=== PATIENT | male | born 1985 | race Two or more races ===

== ENCOUNTER 2024-11-11 14:29 | Inpatient (IN) | payer MEDICAID, OTHER ==
[~2024-11-11] VITALS: Ht 195.6 cm; Wt 81.5 kg
[2024-11-11 14:43] VITALS: PULSE 72; RESP 16; O2SAT 99
[2024-11-11] MEDS: fentaNYL CITRATE 100 MCG/2 ML VL IV ONE (15:24)
--- NOTE | 2024-11-11 15:40 | DVH ---
CLINICAL INDICATION: FALL TECHNIQUE: 3 radiographic views of the right forearm were obtained. Comparison: None FINDINGS/IMPRESSION: There is acute fracture of the distal radius diaphysis with ventral displacement of the distal fragme nt and about 11 mm bony overlap. There is also acute comminuted fracture of the distal ulna diaphysis with foreshortening and about 2. 1 cm bony overlap. Questionable fracture of the base of the 2nd metacarpal. There is associated soft tissue edema.
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
[2024-11-11 16:24] LABS: Hematocrit 42.2 % (41.0-53.0); Hemoglobin 14.6 g/dL (13.5-17.5); Mean Corpuscular Hemoglobin 30.7 pg (28.0-32.0); Mean Corpuscular Volume 88.7 fL (80.0-100.0); Nucleated Red Blood Cells % 0.1 %
[2024-11-11 16:37] LABS: Alanine Aminotransferase 17 U/L (7-40); Albumin 4.7 g/dL (3.2-4.8); Alkaline Phosphatase 66 U/L (46-116); Anion Gap 13 (5-15); BUN/Creatinine Ratio 15.4 (10.0-20.0); Bilirubin, Total 0.6 mg/dL (0.2-1.0); Blood Urea Nitrogen 16 mg/dL (9-23); Calcium 9.6 mg/dL (8.7-10.4); Carbon Dioxide 24 mmol/L (20-31); Chloride 104 mmol/L (98-107); Potassium 4.5 mmol/L (3.5-5.1); Sodium 141 mmol/L (136-145); Total Protein 7.2 g/dL (5.7-8.2)
[2024-11-11 16:38] LABS: Glucose 128 mg/dL (74-106)
[2024-11-11] MEDS: IOHEXOL 300 MG/ML 100ML BOTTLE IJ ONE (17:33)
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
[2024-11-11] MEDS ORDERED: MORPHINE SULFATE INJ 2 MG/ml SYRG IV PRN ×2 (18:00)
[2024-11-11] MEDS: ENOXAPARIN SOD 40 MG/0.4 ML SYRINGE SC ONE (18:00)
[2024-11-11] MEDS: SOD CHL 0.45% 1,000 ML IV SCH (18:00)
[2024-11-11] MEDS ORDERED: NITROGLYCERIN 0.4 MG SL TAB SL PRN (18:00)
[2024-11-11] MEDS ORDERED: ACETAMINOPHEN 325 MG TAB PO PRN (18:00)
[2024-11-11] MEDS ORDERED: DOCUSATE SOD 100 MG CAP PO PRN (18:00)
--- NOTE | 2024-11-11 18:47 | DVH ---
EXAM: CT RT UPPER EXTREMITY WITH CONT INDICATION: FALL INJURY,FRACTURE EXAM DATE: 11/11/2024 05:34 PM COMPARISON: XY R FOREARM XRAY on DOS: 11/11/24 TECHNIQUE: Multiple axial CT images of the right upper extremity were obtained using bone algorithm. Axial and coronal reformatting was done. Bone and soft tissue windows were reviewed. Radiation Dose Information: CT Dose: CTDI volume is 24.08 mGy. Dose-length product is 2.13 mGy*cm Findings/Impression: Displaced acute traumatic fracture of the distal radial shaft. Displaced acute traumatic fracture of the distal ulnar shaft. Displaced acute traumatic fracture of the 1st metacarpal base. Questionable nondisplaced fracture deformity of the triquetrum Soft tissue swelling is seen throughout the forearm.
[2024-11-11 19:41] VITALS: PULSE 84; RESP 18; O2SAT 99
[2024-11-11] MEDS: HYDROcodone-ACET 5/325MG TAB PO PRN (20:13)
[2024-11-11 21:00] VITALS: BP_SYST 132; BP_SYST 136; BP_DIAS 87; BP_DIAS 98; PULSE 77; PULSE 82; PULSE 89; RESP 17; TEMP 98.2; TEMP 98.4; O2SAT 97; O2SAT 98
[2024-11-12] VITALS (9 sets, daily range): BP systolic 125–146; BP diastolic 83–96; PULSE 72–91; RESP 16–18; TEMP 98–98.4; O2SAT 95–98
[2024-11-12] MEDS: HYDROmorphone HCL 2 MG/ML VL/or syr IV PRN (01:32)
[2024-11-12 05:43] LABS: Hematocrit 43.3 % (41.0-53.0); Hemoglobin 15.2 g/dL (13.5-17.5); Mean Corpuscular Hemoglobin 31.3 pg (28.0-32.0); Mean Corpuscular Volume 89.3 fL (80.0-100.0); Nucleated Red Blood Cells % 0.1 %
[2024-11-12 06:07] LABS: Alanine Aminotransferase 15 U/L (7-40); Alkaline Phosphatase 67 U/L (46-116); Anion Gap 12 (5-15); BUN/Creatinine Ratio 9.6 (10.0-20.0); Blood Urea Nitrogen 10 mg/dL (9-23); Calcium 9.3 mg/dL (8.7-10.4); Carbon Dioxide 27 mmol/L (20-31); Chloride 101 mmol/L (98-107); Potassium 3.6 mmol/L (3.5-5.1); Sodium 140 mmol/L (136-145); Total Protein 7.8 g/dL (5.7-8.2)
[2024-11-12 06:09] LABS: Albumin 4.8 g/dL (3.2-4.8); Bilirubin, Total 1.2 mg/dL (0.2-1.0); Glucose 124 mg/dL (74-106)
[2024-11-12] MEDS: ENOXAPARIN SOD 40 MG/0.4 ML SYRINGE SC SCH (09:44)
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
[2024-11-12] MEDS: ONDANSETRON HCL 4 MG/2 ML VIAL IV PRN (23:23)
[2024-11-13] VITALS (9 sets, daily range): BP systolic 129–147; BP diastolic 74–89; PULSE 76–105; RESP 16–18; TEMP 97.6–98; O2SAT 94–98
[2024-11-13] MEDS: ACETAMINOPHEN IV 1000 MG/100ML (10MG/ML) IV ONE (10:39)
[2024-11-13] MEDS: GABAPENTIN 300 MG CAP PO ONE (10:39)
[2024-11-13] MEDS: CELECOXIB 100 MG CAP PO ONE (10:39)
[2024-11-13] MEDS ORDERED: CELECOXIB 100 MG CAP ONE (10:46)
[2024-11-13] MEDS ORDERED: GABAPENTIN 300 MG CAP ONE (10:46)
[2024-11-13] MEDS ORDERED: ACETAMINOPHEN IV 100 ML IV ONE (10:46)
[2024-11-13] MEDS: ceFAZolin 2 GM/D5W50ml 50 ML IV ONE (10:46)
[2024-11-13] MEDS ORDERED: ONDANSETRON HCL 4 MG/2 ML VIAL ONE (10:50)
[2024-11-13] MEDS ORDERED: LIDOCAINE 1% INJ PF 5ML AMP ONE (10:50)
[2024-11-13] MEDS ORDERED: KETOROLAC TROMETH 30 MG/ML 1ML VIAL ONE (10:50)
[2024-11-13] MEDS ORDERED: LIDOCAINE 2% (LOCAL ANESTH.) PF 5ml SDV ONE (10:50)
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
[2024-11-13 11:07] LABS: Hepatitis B Surface Antigen Negative (Negative)
[2024-11-13] MEDS ORDERED: fentaNYL CITRATE 100 MCG/2 ML VL ONE (11:16)
[2024-11-13] MEDS ORDERED: ESMOLOL HCL 10 ML IV ONE (11:22)
[2024-11-13 11:36] LABS: Hepatitis C Antibody Negative (Negative)
[2024-11-13] MEDS ORDERED: NALOXONE HCL 0.4 MG/ML VIAL IV PRN (12:45)
[2024-11-13] MEDS ORDERED: ONDANSETRON HCL 4 MG/2 ML VIAL IV PRN (12:45)
[2024-11-13] MEDS ORDERED: fentaNYL CITRATE 100 MCG/2 ML VL IV PRN (12:45)
[2024-11-13] MEDS ORDERED: FLUMAZENIL 0.1 MG/ML INJ 10ML MDV IV PRN (12:45)
[2024-11-13] MEDS ORDERED: hydrALAZINE HCL 20 MG/ML VL IV PRN (12:45)
[2024-11-13] MEDS: HYDROmorphone HCL 2 MG/ML VL/or syr IV PRN (13:15)
[2024-11-13 13:23] LABS: INR 1.03 (0.9-1.15); Partial Thromboplastin Time 28.8 SEC (24.5-34.5); Prothrombin Time 10.9 sec (9.3-11.8)
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
[2024-11-13] MEDS: ceFAZolin 1GM/50ML 50 ML IV SCH (17:37)
--- NOTE | 2024-11-13 18:43 | DVHOP2 ---
Operative Report - 2 Report Details Date: 11/13/24 Preop Diagnosis: Right both bone forearm fracture Postop Diagnosis: as above Surgeon: Greg Clifton MD Rubber Flap Tuber Machine Operator: Jose Luis ROGERS Anesthesiologist: Hudson MCKEON Anesthesia: General Implant: ITS both bone forearm plates Consent: The patient was informed of the risks and benefits of the procedure. These include but are not limited to complications of anesthesia, postoperative infection, incomplete relief of symptoms, recurrence of symptoms, damage to blood vessels, nerves and tendons, deep venous thrombosis, pulmonary embolism and possible need for repeat surgery in the future. Estimated Blood Loss: 20 cc Name of Procedure Performed 1. Open reduction internal fixation of right both bone forearm fracture; 2. Right forearm volar fasciotomy; 3. Intraoperative fluoroscopy Procedure Details Procedure Details: After informed consent was obtained, the patient was brought to the operating room, placed supine on the operating table. General anesthesia was induced, and a nonsterile tourniquet was placed high on the right arm but not inflated initially. The right upper extremity was prepped and draped in the usual sterile fashion. A direct subcutaneous approach was made along the subcutaneous border of the ulna. Dissection was carried down through subcutaneous tissues, taking care to protect surrounding structures. The ulna fracture was identified and visualized. Fracture ends were debrided of hematoma and interposed tissue. Reduction was achieved using reduction clamps and held provisionally with pointed reduction forceps. Internal fixation was performed using a 3.5 mm DCP spanning the fracture, with appropriate number of bicortical screws proximally and distally - 5 total. Fluoroscopy confirmed satisfactory alignment and hardware placement. A volar Brijesh approach was utilized. Patient muscle noted to have some increased swelling so I did proceed with a volar fasciotomy. A longitudinal incision approximately 1520 cm in length was made along the volar forearm, just ulnar to the flexor carpi radialis (FCR) tendon, extending from the antecubital fossa to proximal to the wrist crease. The skin and subcutaneous tissue were incised sharply, and hemostasis was maintained. Dissection was carried through the superficial fascia. The superficial volar compartment (flexor/pronator group) was identified and released by incising the overlying fascia in its entirety along the length of the incision. The deep volar compartment, including the flex or digitorum profundus and flexor pollicis longus muscles, was also decompressed by incising the deep investing fascia. The mobile wad compartment (brachioradialis, ECRL, ECRB) was palpated along the radial side of the wound and released via extension. I then proceeded with plate placement. Dissection proceeded through the interval between the brachioradialis and FCR. The radial artery was protected throughout the procedure. The pronator teres was elevated off the radius. The fracture site was identified and debrided. Reduction was performed and held with clamps. Internal fixation was achieved with a 3.5 mm lockign compression plate with appropriate screw fixation proximally and distally. Fluoroscopy confirmed excellent reduction and hardware placement. The wound was irrigated, hemostasis achieved, and layers were closed in the usual fashion- I did not close fascia. Patient wound were then sterilley dressed and placed into a resting splint. Patient wokened up from anesth having tolerated procedure well. Condition Good Disposition Still a Patient GREG CLIFTON MD Nov 13, 2024 18:42
[2024-11-14] VITALS (7 sets, daily range): BP systolic 129–166; BP diastolic 71–106; PULSE 74–86; RESP 18–20; TEMP 97.3–98.4; O2SAT 95–98
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
[2024-11-15 01:00] VITALS: BP 146/86; PULSE 82; RESP 18; TEMP 98; O2SAT 92
[2024-11-15 05:00] VITALS: BP 140/94; PULSE 90; RESP 18; TEMP 98; O2SAT 95
[2024-11-15 08:00] VITALS: PULSE 81
[2024-11-15 09:00] VITALS: BP 143/85; PULSE 104; RESP 19; TEMP 97.6; O2SAT 95
[2024-11-15] MEDS ORDERED: HYDR-4798 PO (11:23)
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
[2024-11-15 12:51] VITALS: BP 169/99; PULSE 95; RESP 20; TEMP 98.3; O2SAT 95
== END 2024-11-15 14:15 | disposition home or self-care (01) | DRG 315 ==
LOC: ER 14:31 → OVERFLOW 17:52 → TELE-WESTW 20:51
PROVIDERS: ADMIT Family Medicine; ATTEND Family Medicine
PROC: 0PSK04Z Reposition Right Ulna with Internal Fixation Device, Open Approach (ICD-10-PCS; 2024-11-13)
PROC: 0KN90ZZ Release Right Lower Arm and Wrist Muscle, Open Approach (ICD-10-PCS; 2024-11-13)
PROC: 0KN90ZZ Release Right Lower Arm and Wrist Muscle, Open Approach (ICD-10-PCS; 2024-11-13)
PROC: 0KN90ZZ Release Right Lower Arm and Wrist Muscle, Open Approach (ICD-10-PCS; 2024-11-13)
PROC: 0PSH04Z Reposition Right Radius with Internal Fixation Device, Open Approach (ICD-10-PCS; principal; 2024-11-13 10:46)
DX: S52.501A Unspecified fracture of the lower end of right radius, initial encounter for closed fracture (principal); D72.829 Elevated white blood cell count, unspecified; S52.601A Unspecified fracture of lower end of right ulna, initial encounter for closed fracture; S62.209A Unspecified fracture of first metacarpal bone, unspecified hand, initial encounter for closed fracture; V89.2XXA Person injured in unspecified motor-vehicle accident, traffic, initial encounter; Y99.8 Other external cause status; Y92.410 Unspecified street and highway as the place of occurrence of the external cause; Y93.89 Activity, other specified
CPT/HCPCS: 36415; 70450; 71250; 73090; 73201; 80053; 85025; 85610; 85730; 86803; 86850; 86900; 86901; 87340; 96365; 96375; 97110; 97116; 97163; 97530; 99291; G0378; J0131; J1100; J1885; J2003; J2405

== ENCOUNTER 2024-11-26 16:25 | Inpatient (IN) | payer MEDICAID ==
[~2024-11-26] VITALS: Ht 172.7 cm; Wt 78.0 kg
[~2024-11-26 16:25] MED LIST: HYDR-4798 PO
[2024-11-26 18:05] LABS: Hematocrit 40.8 % (41.0-53.0); Hemoglobin 14.4 g/dL (13.5-17.5); Mean Corpuscular Hemoglobin 30.9 pg (28.0-32.0); Mean Corpuscular Volume 87.7 fL (80.0-100.0); Nucleated Red Blood Cells % 0.2 %
[2024-11-26 18:14] LABS: Chloride 102 mmol/L (98-107); Potassium 3.8 mmol/L (3.5-5.1); Sodium 140 mmol/L (136-145)
[2024-11-26 18:15] LABS: Anion Gap 10 (5-15); Calcium 9.7 mg/dL (8.7-10.4); Carbon Dioxide 28 mmol/L (20-31)
[2024-11-26 18:20] LABS: BUN/Creatinine Ratio 9.4 (10.0-20.0); Blood Urea Nitrogen 10 mg/dL (9-23); Glucose 99 mg/dL (74-106)
--- NOTE | 2024-11-26 18:24 | ED.PDOC ---
Musculoskeletal HPI Comments HPI: Poor Historian. 39-year-old male sent by his orthopedic surgeon to be admitted to the [facility] for surgical repair tomorrow. Patient underwent surgery in the same affected arm for a fracture proximally two weeks ago and he has a cast on. He is sent by his doctor for another surgery and requested to be admitted to the hospital, Dr. Greg Philip. Patient himself denies any acute symptoms. Past Medical History: Denies any Past Surgical History: Right upper extremity surgery two weeks ago for fracture REVIEW OF SYSTEMS: CONSTITUTIONAL: Denies acute: fever, diaphoresis, chills, generalized weakness. HEAD: Denies acute: headache, photophobia Eyes: Denies acute: Double vision, vision loss, eye pain, eye discharge. EARS: Denies acute: tinnitus, hearing loss, ear discharge, ear pain, THROAT: Denies acute: sore throat, swelling, difficulty swallowing , pain with swallowing, change in voice. NECK: Denies acute: neck pain, neck swelling, stiff neck. HEART: Denies acute : chest pain, palpitations, LUNGS: Denies acute: SOB, wheezing, cough, hemoptysis ABDOMEN: Denies acute: abdominal pain, Nausea, Vomiting, diarrhea, melena , hematemesis, hematochezia SKIN: Denies acute: rash, redness, lesions, itchiness. EXTREMITIES: Denies acute: calf pain, numbness, tingling, weakness, Denies acute: Low back pain. Neuro: Denies acute: focal neurological deficit, motor or sensory focal neurological deficit, tremors, seizure like activity, confusion, dizziness, change in mental status, loss of bowel or bladder function, cauda equina like symptoms. : Denies acute: dysuria, hematuria, flank pain, increase in urinary frequency. PSYCH: Denies acute: hallucination, suicidal ideation, homicidal ideation. PHYSICAL EXAM: General: ---no----acute distress, awake and alert. Head: normocephalic, atraumatic. Neck: supple, trachea is midline, no swelling. Throat: Normal phonation. Eyes:, no erythema, no purulent discharge, no proptosis, no icterus. Heart: regular rate, regular rhythm, no significant murmur appreciated. Lungs: no apparent respiratory distress, Able to speak in full sentences. No wheezing, no rhonchi, no crackles. No stridors Clear to auscultation bilaterally. Abdomen: non tender to palpation, non distended, soft, no guarding, no rebound, + bowel sounds. Neuro: Awake, Alert, oriented to name, self, situation, follows commands GCS=15. Speech is normal. Skin: no petechia, no purpura, no cyanosis, non-pale, not jaundice. Lower extremities: --no - Pitting edema no deformity, no focal swelling, no calf TTP. Makes eye contact. moves all four extremities. Face: no apparent facial droop. Ambulating in the ED independently. ED COURSE: DISCLAIMER: This medical document was created using an electronic medical record system with voice recognition software and computerized dictation system. Although this document has been carefully reviewed, there might still be some phonetic and typographical errors. Occasional wrong-word or "sound-alike" substitutions may have occurred due to the inherent limitations of voice recognition software. These areas are purely typographical due to imperfections of the software programs and do not reflect any compromise in the patient's medical care. Please read the chart carefully and recognize, using context, where these substitutions have occurred. Chief Complaint: Upper Extremity Time Seen by MD: 16:43 Reviewed Notes: Allergies Allergies: Coded Allergies: NO KNOWN ALLERGIES (Unverified , 11/11/24) Home Meds Active Scripts Hydrocodone-Acetaminophen (Hydrocodone Bitartrate/AC 10-325 mg) 1 Tab Tab, 1 TAB PO QID PRN, #30 TAB Prov:JEFF TRUONG MD 11/15/24 Information Source: Patient Mode of Arrival: Ambulatory Location: Right Past Medical History PAST MEDICAL HISTORY: Denies Surgical History: Denies all surgeries Family History Family History: Reviewed,noncontributory to illness Social History Smoker: Non-Smoker Alcohol: Denies ETOH Use Drugs: Denies Drug Use Lives In: Home Was a procedure done? Was a procedure done?: No Differential Diagnosis EXT Differential Diagnosis: Cellulitis, CHF, Deep Vein Thrombosis, Compartment Sy ndrome, Fracture, Sprain, Dislocation, Laceration, Gout, Contusion, Strain, Septic, Neurovascular injury, Arthritis, Bursitis, Other (Hematoma) X-Ray, Labs, Meds, VS Vital Signs Date Time Temp Pulse Resp B/P (MAP) Pulse Ox O2 Delivery O2 Flow Rate FiO2 11/26/24 16:26 98.0 115 15 148/101 98 98.0 Lab Test 11/26/24 17:41 Range/Units White Blood Count 10.4 4.4-10.8 10^3/uL Red Blood Count 4.65 4.5-5.90 10^6/uL Hemoglobin 14.4 13.5-17.5 g/dL Hematocrit 40.8 L 41.0-53.0 % Mean Corpuscular Volume 87.7 80.0-100.0 fL Mean Corpuscular Hemoglobin 30.9 28.0-32.0 pg Mean Corpuscular Hemoglobin Concent 35.2 32.0-36.0 g/dL Red Cell Distribution Width 12.9 11.8-14.3 % Platelet Count 645 H 140-450 10^3/uL Mean Platelet Volume 7.2 6.9-10.8 fL Neutrophils (%) (Auto) 61.3 37.0-80.0 % Lymphocytes (%) (Auto) 25.2 10.0-50.0 % Monocytes (%) (Auto) 6.8 0.0-12.0 % Eosinophils (%) (Auto) 5.9 0.0-7.0 % Basophils (%) (Auto) 0.8 0.0-2.0 % Neutrophils # (Auto) 6.4 1.6-8.6 10 ^3/uL Lymphocytes # (Auto) 2.6 0.4-5.4 10 ^3/uL Monocytes # (Auto) 0.7 0-1.3 10 ^3/uL Eosinophils # (Auto) 0.6 0-0.8 10 ^3/uL Basophils # (Auto) 0.1 0-0.2 10 ^3/uL Nucleated Red Blood Cells 0.2 % Erythrocyte Sedimentation Rate 14 0-20 mm/hr Sodium Level 140 136-145 mmol/L Potassium Level 3.8 3.5-5.1 mmol/L Chloride Level 102 98-107 mmol/L Carbon Dioxide Level 28 20-31 mmol/L Anion Gap 10 5-15 Blood Urea Nitrogen 10 9-23 mg/dL Creatinine 1.06 0.700-1.30 mg/dL Glomerular Filtration Rate Calc 92 >90 mL/min BUN/Creatinine Ratio 9.4 L 10.0-20.0 Serum Glucose 99 74-106 mg/dL Lactic Acid Level 1.3 0.4-2.0 mmol/L Calcium Level 9.7 8.7-10.4 mg/dL C-Reactive Protein High Sensitivity 0.10 <1.0 mg/dL Time of 1ST Reevaluation: 00:00 Reevaluation 1ST: Patient Education/Counseling: Diagnosis, Treatment Family Education/Counseling: Other Comments MDM: patient presented with the above HPI.---right forearm known fracture---workup was initiated. patient was found with the above mentioned diagnosis. the following medications were ordered: please refer to order lists of meds and tests obtained by myself Dr. Layton. Patient ED course and VS have been stabilized. Patient has been reassessed in the ED and remained in a stable condition. Pertinent incidental findings were discussed with the patient and/or family. Patient/family voices understanding and is agreeable with plan. Patient has been observed in the ED adequate length of time to insure improvement/stability. Escalation of care considered: Consideration of escalation to observation or admission Patient was sent here by the surgeon for surgical repair. Patient was ADMITTED to the medicine team for further evaluation and treatment of their presentation. All the reports of any imaging studies that were ordered by myself were reviewed by myself. Departure 1 Departure Time of Disposition: 18:24 Impression: Primary Impression: Fracture of forearm, closed Disposition: ADMITTED INPATIENT Admit to: [facility] Condition: Guarded Discharged With: Self Critical Care Note Critical Care Time?: No GREGORIO LAYTON DO Nov 26, 2024 18:24
[2024-11-26] MEDS ORDERED: ONDANSETRON HCL 4 MG/2 ML VIAL IV PRN (23:00)
[2024-11-26] MEDS ORDERED: ACETAMINOPHEN 325 MG TAB PO PRN (23:00)
--- NOTE | 2024-11-26 23:45 | DVH ---
CLINICAL INDICATION: fracture TECHNIQUE: XYXY R HAND 3 VIEW XRAY Comparison: XY R FOREARM XRAY on DOS: 11/26/24, XY R HAND 3 VIEW XRAY on DOS: 11/21/24, XY R FOREARM XRAY on DOS: 11/21/24, CT RT UPPER EXTREMITY WITH CONT on DOS: 11/11/24, XY R FOREARM XRAY on DOS: 11/11/24 FINDINGS/IMPRESSION: : Comminuted intra-articular fracture of the base of the 1st metacarpal. Soft tissues are unremarkable.
--- NOTE | 2024-11-26 23:46 | DVH ---
CLINICAL INDICATION: fracture of radius and ulna TECHNIQUE: XYXY R FOREARM XRAY Comparison: XY R HAND 3 VIEW XRAY on DOS: 11/26/24, XY R HAND 3 VIEW XRAY on DOS: 11/21/24, XY R FORE ARM XRAY on DOS: 11/21/24, CT RT UPPER EXTREMITY WITH CONT on DOS: 11/11/24, XY R FOREARM XRAY on DOS: 11/11/24 FINDINGS/IMPRESSION: : Plate and screw fixation hardware at the distal radius and ulna. Suspect a superimposed acute fracture through the mid to distal radial diaphysis as the hardware is n ow malaligned with the radius. Hardware appears well positioned and aligned with the ulna.
[2024-11-27 00:26] LABS: INR 1.05 (0.9-1.15); Partial Thromboplastin Time 29.3 SEC (24.5-34.5); Prothrombin Time 11.1 sec (9.3-11.8)
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
--- NOTE | 2024-11-27 07:09 | DVH ---
CHEST RADIOGRAPH Indication: HTN Technique: Single frontal view of the chest was obtained COMPARISON: CT CHEST WITHOUT CONTRAST on DOS: 11/12/24 FINDINGS: Lines and Tubes: None Lungs: Clear Pleura: No effusion. No pneumothorax. Cardiomediastinal contours: Unremarkable Bones: Unremarkable IMPRESSION: No acute disease.
[2024-11-27 08:35] LABS: Hemoglobin 14.8 g/dL (13.5-17.5)
[2024-11-27 08:36] LABS: Hematocrit 42.2 % (41.0-53.0); Mean Corpuscular Hemoglobin 30.8 pg (28.0-32.0); Mean Corpuscular Volume 87.9 fL (80.0-100.0); Nucleated Red Blood Cells % 0.3 %
[2024-11-27] MEDS: ceFAZolin 1GM/50ML 50 ML IV ONE (08:44)
[2024-11-27 08:59] LABS: Alanine Aminotransferase 15 U/L (7-40); Alkaline Phosphatase 82 U/L (46-116); Anion Gap 11 (5-15); BUN/Creatinine Ratio 10.3 (10.0-20.0); Blood Urea Nitrogen 9 mg/dL (9-23); Calcium 10.1 mg/dL (8.7-10.4); Carbon Dioxide 30 mmol/L (20-31); Chloride 100 mmol/L (98-107); Potassium 3.9 mmol/L (3.5-5.1); Sodium 141 mmol/L (136-145); Total Protein 8.1 g/dL (5.7-8.2)
[2024-11-27] MEDS ORDERED: MEPERIDINE HCL (25 MG/ML) 1ML VIAL ONE (09:00)
[2024-11-27] MEDS ORDERED: MIDAZOLAM HCL 2MG/2ML 2ml VIAL (1mg/ml) ONE (09:00)
[2024-11-27 09:01] LABS: Bilirubin, Total 0.7 mg/dL (0.2-1.0)
[2024-11-27] MEDS ORDERED: fentaNYL CITRATE 100 MCG/2 ML VL ONE (09:05)
[2024-11-27 09:13] LABS: Albumin 4.9 g/dL (3.2-4.8); Glucose 111 mg/dL (74-106)
[2024-11-27 09:45] VITALS: PULSE 73; RESP 15; O2SAT 99
[2024-11-27] MEDS ORDERED: hydrALAZINE HCL 20 MG/ML VL IV PRN (10:00)
[2024-11-27] MEDS ORDERED: ONDANSETRON HCL 4 MG/2 ML VIAL IV PRN (10:00)
[2024-11-27] MEDS ORDERED: MIDAZOLAM HCL 2MG/2ML 2ml VIAL (1mg/ml) IV PRN (10:00)
--- NOTE | 2024-11-27 10:13 | DVH ---
FLUOROSCOPY TIME: 19.4 seconds TECHNIQUE: Intraoperative radiographs of the right 1st digit were obtained. COMPARISON: XY R FOREARM XRAY on DOS: 11/26/24, XY R HAND 3 VIEW XRAY on DOS: 11/26/24, XY R HAND 3 V IEW XRAY on DOS: 11/21/24, XY R FOREARM XRAY on DOS: 11/21/24, CT RT UPPER EXTREMITY WITH CONT on DOS : 11/11/24 FINDINGS: Refer to intraoperative report for further evaluation. IMPRESSION: Refer to intraoperative report for further evaluation.
[2024-11-27] MEDS ORDERED: PROPOFOL 10 MG/ML 20 ML IV ONE (10:15)
[2024-11-27] MEDS: MORPHINE SULFATE 4 MG/ML SYR/VIAL IV PRN (10:43)
[2024-11-27] MEDS: KETOROLAC TROMETH 30 MG/ML 1ML VIAL IV ONE (11:08)
[2024-11-27] MEDS: ACETAMINOPHEN IV 1000 MG/100ML (10MG/ML) IV ONE (12:31)
[2024-11-27] MEDS ORDERED: ceFAZolin 1GM/50ML 50 ML IV SCH (14:00)
[2024-11-27] MEDS: HYDROmorphone HCL 2 MG/ML VL/or syr IV PRN ×2 (15:03→22:19)
[2024-11-27] MEDS ORDERED: HYDROmorphone HCL 2 MG/ML VL/or syr ONE (15:06)
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
[2024-11-27 16:10] VITALS: BP 139/94; PULSE 88; RESP 18; TEMP 96.6; O2SAT 97
[2024-11-27] MEDS: HYDROcodone-ACET 5/325MG TAB PO PRN (20:47)
[2024-11-27] MEDS: ceFAZolin 1GM/50ML 50 ML IV SCH (20:50)
[2024-11-27 21:00] VITALS: BP 123/85; PULSE 84; RESP 16; TEMP 97.5; O2SAT 97
[2024-11-28] VITALS (8 sets, daily range): BP systolic 123–138; BP diastolic 82–88; PULSE 74–99; RESP 16–18; TEMP 97.5–98.2; O2SAT 95–98
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
[2024-11-29 01:00] VITALS: BP 137/93; PULSE 70; RESP 16; TEMP 97.7; O2SAT 97
[2024-11-29 05:00] VITALS: BP 132/91; PULSE 66; RESP 16; TEMP 97.9; O2SAT 96
[2024-11-29 08:00] VITALS: PULSE 85; RESP 16
[2024-11-29 09:00] VITALS: BP 140/97; PULSE 77; RESP 17; TEMP 98.5; O2SAT 94
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
--- NOTE | 2024-11-30 13:39 | DVHOP2 ---
Operative Report - 2 Report Details Date: 11/27/24 Preop Diagnosis: Right thumb metacarpal base intra-articular fracture Postop Diagnosis: Right thumb metacarpal base intra-articular fracture Surgeon: Greg Clifton MD Dental Insurance Biller: Jose Luis ROGERS Anesthesiologist: Milton MCKEON Anesthesia: General Implant: 6.2mm k-wire x 2 Consent: The patient was informed of the risks and benefits of the procedure. These include but are not limited to complications of anesthesia, postoperative infection, incomplete relief of symptoms, recurrence of symptoms, damage to blood vessels, nerves and tendons, deep venous thrombosis, pulmonary embolism and possible need for repeat surgery in the future. Estimated Blood Loss: 2 cc Name of Procedure Performed 1. Open reduction internal fixation of right thumb metacarpal fracture; 2. Intraoperative fluoroscopy Procedure Details Procedure Details: After informed consent was obtained, the patient was brought to the operating room and placed supine on the table. The right upper extremity was prepped and draped in the usual sterile fashion. A pneumatic tourniquet was applied and inflated. A longitudinal incision was made over the dorsal-radial aspect of the right thumb metacarpal base. Dissection was carried carefully through the subcutaneous tissue, protecting the branches of the superficial radial nerve and the dorsal veins. The fracture site was identified, and hematoma was evacuated. Under direct visualization and fluoroscopic guidance, the fracture fragments were reduced anatomically using small pointed reduction forceps. Once satisfactory alignment was confirmed on fluoroscopy, fixation was achieved using two mooth K-wires 6.2 mm inserted percutaneously in a crossed configuration across the fracture site into stable bone. Fluoroscopy confirmed excellent reduction and hardware placement. The K-wires were cut and bent outside the skin for easy removal. The wound was irrigated thoroughly with sterile saline, hemostasis was achieved, and the incision was closed with interrupted nylon sutures. A sterile dressing and thumb spica splint were applied. The tourniquet was released, and the hand was noted to have good capillary refill to all digits. Condition Fair Disposition Still a Patient GREG CLIFTON MD Nov 30, 2024 13:39
== END 2024-11-29 11:59 | disposition home or self-care (01) | DRG 316 ==
LOC: ER 16:25 → OVERFLOW 22:55 → UNDODISIN 11-27 11:03 → WEST WING 11-27 16:15
PROVIDERS: ADMIT Internal Medicine; ATTEND Internal Medicine
PROC: 0PSP04Z Reposition Right Metacarpal with Internal Fixation Device, Open Approach (ICD-10-PCS; principal; 2024-11-27 09:05)
DX: S62.231A Other displaced fracture of base of first metacarpal bone, right hand, initial encounter for closed fracture (principal); D75.838 Other thrombocytosis; E66.811 Obesity, class 1; Z68.32 Body mass index [BMI] 32.0-32.9, adult; V49.9XXA Car occupant (driver) (passenger) injured in unspecified traffic accident, initial encounter; Y93.89 Activity, other specified; Y92.89 Other specified places as the place of occurrence of the external cause; Y99.8 Other external cause status
CPT/HCPCS: 36415; 71045; 73090; 73130; 73140; 76000; 80048; 80053; 83605; 85025; 85610; 85652; 85730; 86141; 86850; 86900; 86901; 87081; G0378; J0131; J1100; J1885; J2250; J2704